=== PATIENT | female | born 1950 | race Caucasian/White ===

== ENCOUNTER 2020-06-13 21:50 | Emergency (ER) | payer OTHER, BC ==
[2020-06-13 22:26] VITALS: BMI 26.2
[2020-06-13 23:20] LABS: BASO % 0.8 % (0-2.0); EOS % 0.8 % (0-4.5); HEMATOCRIT 40.5 % (32.4-45.2); HEMOGLOBIN 13.6 GM/dL (10.7-15.3); LYMPH % 18.5 % (8-40); MCH 31.4 pg (25.7-33.7); MCHC 33.6 g/dl (32.0-36.0); MEAN CELL VOLUME 93.5 fl (80-96); MEAN PLT VOLUME 10.5 fl (7.5-11.1); MONO % 8.5 % (3.8-10.2); NEUT % 71.4 % (42.8-82.8); PLATELET COUNT 239 K/MM3 (134-434); RBC 4.33 M/mm3 (3.60-5.2); RDW 13.1 % (11.6-15.6); WHITE BLOOD COUNT 13.8 K/mm3 (4.0-10.0)
[2020-06-13 23:39] LABS: POTASSIUM 3.8 mmol/L (3.5-5.1)
[2020-06-13 23:41] LABS: CALCIUM 8.9 mg/dL (8.5-10.1)
[2020-06-13 23:42] LABS: ALBUMIN 3.7 g/dl (3.4-5.0); BLOOD UREA NITROGEN 23.2 mg/dL (7-18)
[2020-06-13 23:46] LABS: BILIRUBIN,TOTAL 0.6 mg/dL (0.2-1)
[2020-06-14 00:19] VITALS: BP 138/69; PULSE 82; TEMP 98.4
== END 2020-06-14 00:19 | disposition home or self-care (01) ==
LOC: JER 21:50
DX: R00.2 Palpitations (principal)
CPT/HCPCS: 36415; 71045-TC-FY; 80053; 82550; 84484; 85025; 93005; 93010; 99285-25

== ENCOUNTER 2023-08-19 04:29 | Day surgery (SDC) | payer OTHER, BC ==
[2023-08-13 14:10] VITALS: BMI 28.3
[2023-08-19 07:30] VITALS: TEMP 97.8
[2023-08-19 09:01] VITALS: BP 114/51; PULSE 68; RESP 16
== END 2023-08-19 09:15 | disposition home or self-care (01) ==
LOC: JASU-ENDO 04:29
PROVIDERS: ATTEND Internal Medicine Gastroenterology
PROC: 0DBN8ZX Excision of Sigmoid Colon, Via Natural or Artificial Opening Endoscopic, Diagnostic (ICD-10-PCS; principal; 2023-08-19 08:00)
DX: Z12.11 Encounter for screening for malignant neoplasm of colon (principal); D12.7 Benign neoplasm of rectosigmoid junction; K57.30 Diverticulosis of large intestine without perforation or abscess without bleeding; K64.8 Other hemorrhoids
CPT/HCPCS: 88305-TC